=== PATIENT | female | born 1990 | race Caucasian/White ===

== ENCOUNTER 2020-04-18 05:30 | Observation (INO) | payer MEDICAID ==
[~2020-04-18] VITALS: Ht 180.3 cm; Wt 57.2 kg
[2020-04-18] MEDS ORDERED: ONDANSETRON HCL 4MG/2ML INJ IV ONE (05:45)
[2020-04-18] MEDS: LACTATED RINGERS 1,000 ML IV SCH ×2 (06:01→09:12)
[2020-04-18] MEDS ORDERED: BUTORPHANOL TARTRATE 2 MG/ML VIAL IV NR (06:23)
[2020-04-18 06:29] VITALS: BP 88/53
[2020-04-18 06:35] LABS: BASOPHILS % 0.3 % (0.0-2.0); EOSINOPHILS % 1.4 % (0.0-5.0); HEMATOCRIT. 25.3 % (36.0-48.0); HEMOGLOBIN. 8.2 g/dL (12.0-16.0); LYMPHOCYTES % 22.6 % (20.0-50.0); MEAN CORPUSCULAR HEMOGLOBIN 24.8 pg (28.0-32.0); MEAN CORPUSCULAR VOLUME 76.4 fL (81.0-99.0); MEAN PLATELET VOLUME 8.5 fl (7.4-10.4); MONOCYTES % 7.2 % (2.0-8.0); NEUTROPHILS % 68.5 % (40.0-76.0); PLATELET 214 x1000/uL (130-400); RED BLOOD CELL COUNT 3.31 mill/uL (4.2-5.4); RED CELL DISTRIBUTION WIDTH 14.4 % (11.6-14.6)
[2020-04-18 06:51] LABS: CHLORIDE 109 mEq/L (98-107)
[2020-04-18] MEDS ORDERED: LACTATED RINGERS IV SCH (08:15)
[2020-04-18] MEDS ORDERED: POTASSIUM ACETATE IV SCH (08:15)
[2020-04-18] MEDS ORDERED: DEXT IV SCH (08:15)
[2020-04-18] MEDS ORDERED: KCL 20MEQ/100ML PREMIX 100 ML IV NR (08:30)
== END 2020-04-18 11:35 | disposition home or self-care (01) ==
LOC: OBSVTOIN 05:30 → 8 EST LDRP 05:30 → INTOOBSV 05:30
PROVIDERS: ADMIT Obstetrics & Gynecology; ATTEND Obstetrics & Gynecology
DX: O26.893 Other specified pregnancy related conditions, third trimester (principal); R10.10 Upper abdominal pain, unspecified; Z3A.31 31 weeks gestation of pregnancy
CPT/HCPCS: 36415; 59025; 80053; 85025; 96361; 96374; 96375; G0378; J0595; J2405; J3480; 96360; 99281

== ENCOUNTER 2022-12-14 10:19 | Emergency (ER) | payer MEDICAID ==
[~2022-12-14] VITALS: Ht 134.6 cm; Wt 57.0 kg
[2022-12-14 10:30] VITALS: O2SAT 100
[2022-12-14 11:28] LABS: CLARITY URINE CLEAR (CLEAR); COLOR URINE YELLOW (YELLOW); GLUCOSE URINE NEGATIVE (NEGATIVE); KETONES URINE NEGATIVE (NEGATIVE); LEUKOCYTE ESTERASE URINE NEGATIVE (NEGATIVE); NITRITE URINE NEGATIVE (NEGATIVE); OCCULT BLOOD URINE TRACE (NEGATIVE); PROTEIN URINE NEGATIVE (NEGATIVE); SPECIFIC GRAVITY URINE 1.017 (1.005-1.030); UROBILINOGEN URINE 0.2 E.U./dL (0.2-1.0)
[2022-12-14] MEDS ORDERED: CYCLOBENZAPRINE 10MG TABLET PO ONE (11:30)
[2022-12-14] MEDS ORDERED: KETOROLAC 30MG/ML VIAL IM ONE (11:30)
[2022-12-14] MEDS ORDERED: NAPR-1176 MT (12:36)
[2022-12-14] MEDS ORDERED: CYCL10TA21 MT (12:36)
[2022-12-14 12:39] LABS: BACTERIA URINE NONE SEEN; SQUAMOUS EPITHELIAL CELL URINE RARE /lpf (RARE/1+)
[2022-12-14 12:40] LABS: WBC URINE 0-2 /hpf (0-2)
[2022-12-14 12:41] LABS: RBC URINE 0-2 /hpf (0-2)
[2022-12-14 13:05] VITALS: BP 126/74; PULSE 65; RESP 19; TEMP 98.2
== END 2022-12-14 13:06 | disposition home or self-care (01) ==
LOC: ER 10:19
DX: M54.50 Low back pain, unspecified (principal)
CPT/HCPCS: 81003; 81025; 96372; 99283; J1885; Z7610